=== PATIENT | male | born 1995 | race Asian ===

== ENCOUNTER 2020-10-23 16:01 | Emergency (ER) | payer MEDICAID ==
[~2020-10-23] VITALS: Ht 175.3 cm; Wt 77.3 kg
[2020-10-23 16:03] VITALS: BP 126/75
== END 2020-10-23 17:23 | disposition home or self-care (01) ==
LOC: EMS 16:03
DX: Z20.822 Contact with and (suspected) exposure to COVID-19 (principal)
CPT/HCPCS: 99283; U0003

== ENCOUNTER 2025-03-12 07:27 | Emergency (ER) | payer MEDICAID ==
[~2025-03-12] VITALS: Ht 175.3 cm; Wt 108.0 kg
[2025-03-12 07:33] VITALS: BP 121/67; PULSE 69; RESP 16; TEMP 98.1; O2SAT 99
[2025-03-12] MEDS: PERTUSS(ACELL),DIPH,TET/PF 0.5 ML SYRINGE [ADULT] IM. ONE (08:38)
[2025-03-12] MEDS: BACITRACIN 0.9 GM PACKET OINTMENT TP ONE (08:49)
== END 2025-03-12 09:00 | disposition home or self-care (01) ==
LOC: EMS 07:30
DX: S30.811A Abrasion of abdominal wall, initial encounter (principal); W54.8XXA Other contact with dog, initial encounter; Y93.89 Activity, other specified; Y92.89 Other specified places as the place of occurrence of the external cause; Y99.8 Other external cause status
CPT/HCPCS: 90471; 90715; 99283

== ENCOUNTER 2025-03-26 04:56 | Emergency (ER) | payer MEDICAID ==
[~2025-03-26] VITALS: Ht 172.7 cm; Wt 104.5 kg
[2025-03-26 06:12] VITALS: BP 141/78; PULSE 74; RESP 14; TEMP 97.3; O2SAT 100
[2025-03-26] MEDS: methocarbamoL 500 MG TABLET PO ONE (06:30)
[2025-03-26] MEDS: IBUPROFEN 600 MG TABLET PO ONE (06:30)
[2025-03-26] MEDS ORDERED: IBUP-1492 PO (06:36)
[2025-03-26] MEDS ORDERED: METH-659 PO (06:36)
== END 2025-03-26 06:45 | disposition home or self-care (01) ==
LOC: EMS 04:56
DX: S29.012A Strain of muscle and tendon of back wall of thorax, initial encounter (principal); Z98.890 Other specified postprocedural states; V89.2XXA Person injured in unspecified motor-vehicle accident, traffic, initial encounter; Y93.89 Activity, other specified; Y92.488 Other paved roadways as the place of occurrence of the external cause; Y99.8 Other external cause status
CPT/HCPCS: 99283